=== PATIENT | female | born 1955 | race African-American/Black ===

== ENCOUNTER 2018-08-24 08:07 | Inpatient (IN) | payer MEDICAID ==
[~2018-08-24] VITALS: Ht 165.1 cm; Wt 80.7 kg
[~2018-08-24 08:07] MED LIST: AMIT100T2 PO; ASPI-1159 PO; ATOR20TA65 PO; COR12 PO; CYCL10TA7 PO; DIGO125T82 PO; FURO-151 PO; LISI10TA5 PO; MAGN400C PO; SPIR25TA6 PO
[2018-08-24] MEDS ORDERED: ASPIRIN 81MG TABLET PO ONE (09:15)
[2018-08-24] MEDS ORDERED: ALBUTEROL (0.083%) 2.5MG/3ML NEB HHN STA (09:19)
[2018-08-24] MEDS ORDERED: METHYLPREDNISOLONE SOD SUCC 125 MG/2 ML VIAL IV STA (09:19)
[2018-08-24] MEDS ORDERED: IPRATROPIUM BROMIDE (0.02%) 0.5MG/2.5ML NEB HHN STA (09:19)
[2018-08-24 09:59] LABS: BASOPHILS % 0.5 % (0.0-2.0); EOSINOPHILS % 0.1 % (0.0-5.0); HEMATOCRIT. 34.4 % (36.0-48.0); HEMOGLOBIN. 11.8 g/dL (12.0-16.0); MEAN CORPUSCULAR HEMOGLOBIN 36.6 pg (28.0-32.0); MEAN PLATELET VOLUME 10.1 fl (7.4-10.4); MONOCYTES % 12.1 % (2.0-8.0); NEUTROPHILS % 57.3 % (40.0-76.0); PLATELET 107 x1000/uL (130-400); RED BLOOD CELL COUNT 3.22 mill/uL (4.2-5.4); RED CELL DISTRIBUTION WIDTH 14.4 % (11.6-14.6)
[2018-08-24 10:05] LABS: CHLORIDE 104 mEq/L (98-107)
[2018-08-24 10:08] LABS: INR 1.2; PROTHROMBIN TIME 11.7 sec (9.1-11.1)
[2018-08-24 10:52] LABS: DIGOXIN < 0.1 ng/mL (0.9-2.0)
[2018-08-24] MEDS ORDERED: FUROSEMIDE 40MG/4ML VIAL IVP ONE (11:00)
[2018-08-24] MEDS ORDERED: DOCUSATE SODIUM 100MG CAPSULE PO PRN (11:45)
[2018-08-24] MEDS ORDERED: ACETAMINOPHEN 325MG TABLET PO PRN (11:45)
[2018-08-24] MEDS ORDERED: IPRATROPIUM/ALBUTEROL 0.5-3(2.5)MG/3ML NEB INH PRN (11:45)
[2018-08-24] MEDS ORDERED: GUAIFENESIN 200MG/10ML SUGAR FREE UDC PO PRN (11:45)
[2018-08-24] MEDS ORDERED: LORAZEPAM 2MG/ML CPJ IV PRN (11:45)
[2018-08-24] MEDS ORDERED: NA PHOS,M-B/NA PHOS,DI-BA ENEMA 118ML PR PRN (11:45)
[2018-08-24] MEDS ORDERED: CLONIDINE 0.1MG TABLET PO PRN (11:45)
[2018-08-24] MEDS ORDERED: MAGNESIUM/ALUMINUM HYDROXIDE/SIMETHICONE 30ML UDC PO PRN (11:45)
[2018-08-24] MEDS ORDERED: METHYLPREDNISOLONE SOD SUCC 125 MG/2 ML VIAL IV SCH (11:45)
[2018-08-24] MEDS: NITROGLYCERIN 0.4MG TABLET SL SL PRN (11:47)
[2018-08-24] MEDS: HYDROCODONE/ACETAMINOPHEN 5/325MG TABLET PO PRN (13:21)
[2018-08-24] MEDS: HYDROMORPHONE HCL/PF 2MG/ML CPJ IV PRN ×2 (13:21→21:29)
[2018-08-24 16:47] VITALS: BP 114/89
[2018-08-24] MEDS: ONDANSETRON HCL 4MG/2ML INJ IV PRN ×2 (17:14→23:31)
[2018-08-24] MEDS: ENOXAPARIN 40MG/0.4ML SYR SUBCUT SCH (17:14)
[2018-08-24] MEDS: NICOTINE 14MG PATCH TD SCH (17:14)
[2018-08-24] MEDS: IPRATROPIUM/ALBUTEROL 0.5-3(2.5)MG/3ML NEB HHN PRN ×2 (17:18→20:30)
[2018-08-24 20:02] VITALS: BP 112/85
[2018-08-24 20:19] LABS: CHLORIDE 103 mEq/L (98-107)
[2018-08-24] MEDS: METHYLPREDNISOLONE SOD SUCC 40 MG/ML VIAL IV SCH (20:46)
[2018-08-25] VITALS (9 sets, daily range): BP systolic 99–114; BP diastolic 60–91
[2018-08-25] MEDS: DIPHENHYDRAMINE 50MG/ML VIAL IV PRN ×3 (00:17→22:48)
[2018-08-25] MEDS: IPRATROPIUM/ALBUTEROL 0.5-3(2.5)MG/3ML NEB HHN PRN ×4 (00:35→22:55)
[2018-08-25 04:27] LABS: CHLORIDE 101 mEq/L (98-107)
[2018-08-25 04:33] LABS: HEMATOCRIT. 32.9 % (36.0-48.0); HEMOGLOBIN. 11.3 g/dL (12.0-16.0); MEAN CORPUSCULAR HEMOGLOBIN 36.8 pg (28.0-32.0); MEAN CORPUSCULAR VOLUME 107.6 fL (81.0-99.0); RED BLOOD CELL COUNT 3.06 mill/uL (4.2-5.4); RED CELL DISTRIBUTION WIDTH 14.5 % (11.6-14.6)
[2018-08-25 04:37] LABS: HDL CHOLESTEROL 124 mg/dL (40-59)
[2018-08-25] MEDS: NITROGLYCERIN 0.4MG TABLET SL SL PRN (04:38)
[2018-08-25 04:41] LABS: LDL CHOLESTEROL 47 mg/dL (5-100)
[2018-08-25 05:30] LABS: CLARITY URINE CLEAR (CLEAR); KETONES URINE TRACE (NEGATIVE); LEUKOCYTE ESTERASE URINE TRACE (NEGATIVE); NITRITE URINE NEGATIVE (NEGATIVE); OCCULT BLOOD URINE NEGATIVE (NEGATIVE); PH URINE 5.5 (4.5-8.0); PROTEIN URINE NEGATIVE (NEGATIVE); SPECIFIC GRAVITY URINE 1.018 (1.005-1.030)
[2018-08-25 05:44] LABS: COLOR URINE DARK YELLOW (YELLOW)
[2018-08-25 05:59] LABS: *AMPHETAMINES SCREEN URINE NEGATIVE (NEGATIVE); *BARBITURATES SCREEN URINE NEGATIVE (NEGATIVE); *BENZODIAZEPINES SCREEN URINE NEGATIVE (NEGATIVE); *COCAINE SCREEN URINE NEGATIVE (NEGATIVE)
[2018-08-25 06:00] LABS: CANNABINOID URINE SCREEN PRESUMTIVE POSITIVE (NEGATIVE); METHADONE URINE SCREEN NEGATIVE (NEGATIVE); OPIATES URINE SCREEN PRESUMTIVE POSITIVE (NEGATIVE); PHENCYCLIDINE URINE SCREEN NEGATIVE (NEGATIVE)
[2018-08-25] MEDS: FUROSEMIDE 40MG/4ML VIAL IV SCH (08:44)
[2018-08-25] MEDS: ASPIRIN 81MG EC TABLET PO SCH (08:44)
[2018-08-25] MEDS: FOLIC ACID 1MG TABLET PO SCH (08:44)
[2018-08-25] MEDS: THIAMINE HCL 100MG TABLET PO SCH (08:44)
[2018-08-25] MEDS: METHYLPREDNISOLONE SOD SUCC 40 MG/ML VIAL IV SCH ×2 (08:44→21:07)
[2018-08-25] MEDS: MULTIVITAMINS,THER W-MINERALS TABLET PO SCH (08:44)
[2018-08-25] MEDS: NICOTINE 14MG PATCH TD SCH (08:44)
[2018-08-25] MEDS ORDERED: SIMV20TA6 PO (09:34)
[2018-08-25] MEDS ORDERED: LOSA25TA12 PO (09:37)
[2018-08-25] MEDS ORDERED: TRAZ-212 PO (09:37)
[2018-08-25] MEDS ORDERED: METH-612 PO (09:37)
[2018-08-25] MEDS ORDERED: METHOCARBAMOL 750MG TABLET PO PRN (10:00)
[2018-08-25] MEDS: SPIRONOLACTONE 50MG TABLET PO SCH (10:20)
[2018-08-25] MEDS: CARVEDILOL 12.5MG TABLET PO SCH ×2 (10:21→21:08)
[2018-08-25] MEDS: ENOXAPARIN 40MG/0.4ML SYR SUBCUT SCH (10:21)
[2018-08-25] MEDS: LOSARTAN POTASSIUM 25 MG TABLET PO SCH (10:29)
[2018-08-25 12:49] LABS: NUCLEATED RED BLOOD CELLS 1 /100 WBC
[2018-08-25 12:51] LABS: MEAN PLATELET VOLUME 10.7 fl (7.4-10.4); PLATELET 108 x1000/uL (130-400); PLATELET ESTIMATE SLIGHTLY DECREASED
[2018-08-25] MEDS ORDERED: METHOCARBAMOL 750MG TABLET PO SCH (14:00)
[2018-08-25] MEDS ORDERED: MEDICATION NOT ON FORMULARY EA (Simvastatin 20 MG) PO SCH (21:00)
[2018-08-25] MEDS: ATORVASTATIN CALCIUM 10MG TABLET PO SCH (21:08)
[2018-08-25] MEDS: TRAZODONE HCL 50MG TABLET PO SCH (21:08)
[2018-08-25] MEDS: HYDROMORPHONE HCL/PF 2MG/ML CPJ IV PRN (21:10)
[2018-08-26] VITALS: BP 105/74
[2018-08-26] MEDS: DIPHENHYDRAMINE 50MG/ML VIAL IV PRN (03:11)
[2018-08-26 06:07] VITALS: BP 111/66
[2018-08-26] MEDS: IPRATROPIUM/ALBUTEROL 0.5-3(2.5)MG/3ML NEB HHN PRN (07:53)
[2018-08-26] MEDS: LOSARTAN POTASSIUM 25 MG TABLET PO SCH (09:00)
[2018-08-26] MEDS: CARVEDILOL 12.5MG TABLET PO SCH ×2 (09:00→20:38)
[2018-08-26] MEDS: FUROSEMIDE 40MG/4ML VIAL IV SCH (09:04)
[2018-08-26] MEDS: FOLIC ACID 1MG TABLET PO SCH (09:05)
[2018-08-26] MEDS: ASPIRIN 81MG EC TABLET PO SCH (09:05)
[2018-08-26] MEDS: METHYLPREDNISOLONE SOD SUCC 40 MG/ML VIAL IV SCH ×2 (09:05→21:06)
[2018-08-26] MEDS: SPIRONOLACTONE 50MG TABLET PO SCH (09:05)
[2018-08-26] MEDS: MULTIVITAMINS,THER W-MINERALS TABLET PO SCH (09:06)
[2018-08-26] MEDS: NICOTINE 14MG PATCH TD SCH (09:06)
[2018-08-26] MEDS: THIAMINE HCL 100MG TABLET PO SCH (09:06)
[2018-08-26] MEDS: HYDROCODONE/ACETAMINOPHEN 5/325MG TABLET PO PRN ×3 (09:07→20:37)
[2018-08-26 09:21] VITALS: BP 95/67
[2018-08-26] MEDS ORDERED: POTASSIUM CHLORIDE 20MEQ TABLET SR PO SCH (11:45)
[2018-08-26] MEDS: ENOXAPARIN 40MG/0.4ML SYR SUBCUT SCH (14:19)
[2018-08-26] MEDS: IPRATROPIUM/ALBUTEROL 0.5-3(2.5)MG/3ML NEB HHN SCH ×2 (15:50→21:48)
[2018-08-26 16:32] LABS: HEPATITIS B SURFACE ANTIGEN NEGATIVE
[2018-08-26 16:56] VITALS: BP 109/76
[2018-08-26 17:02] LABS: HEPATITIS A AB IGM NEGATIVE (NEGATIVE)
[2018-08-26 20:00] VITALS: BP 100/71
[2018-08-26] MEDS: GUAIFENESIN 600MG ER TABLET PO SCH (20:30)
[2018-08-26] MEDS: ATORVASTATIN CALCIUM 10MG TABLET PO SCH (20:30)
[2018-08-26] MEDS: TRAZODONE HCL 50MG TABLET PO SCH (20:30)
[2018-08-27] VITALS: BP 102/76
[2018-08-27] MEDS: IPRATROPIUM/ALBUTEROL 0.5-3(2.5)MG/3ML NEB HHN SCH ×4 (03:46→20:24)
[2018-08-27 04:00] VITALS: BP 103/78
[2018-08-27] MEDS: ASPIRIN 81MG EC TABLET PO SCH (07:42)
[2018-08-27] MEDS: METHYLPREDNISOLONE SOD SUCC 40 MG/ML VIAL IV SCH ×2 (07:42→21:19)
[2018-08-27] MEDS: GUAIFENESIN 600MG ER TABLET PO SCH ×2 (07:42→20:54)
[2018-08-27] MEDS: FOLIC ACID 1MG TABLET PO SCH (07:42)
[2018-08-27] MEDS: MULTIVITAMINS,THER W-MINERALS TABLET PO SCH (07:42)
[2018-08-27] MEDS: THIAMINE HCL 100MG TABLET PO SCH (07:42)
[2018-08-27] MEDS: HYDROCODONE/ACETAMINOPHEN 5/325MG TABLET PO PRN ×2 (07:43→20:54)
[2018-08-27] MEDS: NICOTINE 14MG PATCH TD SCH (07:44)
[2018-08-27] MEDS: SPIRONOLACTONE 50MG TABLET PO SCH (07:45)
[2018-08-27 07:50] VITALS: BP 111/83
[2018-08-27 08:14] LABS: BASOPHILS % 0.2 % (0.0-2.0); EOSINOPHILS % 0.1 % (0.0-5.0); HEMATOCRIT. 34.7 % (36.0-48.0); HEMOGLOBIN. 11.9 g/dL (12.0-16.0); LYMPHOCYTES % 20.8 % (20.0-50.0); MEAN CORPUSCULAR HEMOGLOBIN 37.1 pg (28.0-32.0); MEAN CORPUSCULAR VOLUME 107.8 fL (81.0-99.0); MONOCYTES % 10.7 % (2.0-8.0); NEUTROPHILS % 68.2 % (40.0-76.0); RED BLOOD CELL COUNT 3.21 mill/uL (4.2-5.4)
[2018-08-27] MEDS: LOSARTAN POTASSIUM 25 MG TABLET PO SCH (08:38)
[2018-08-27] MEDS: CARVEDILOL 12.5MG TABLET PO SCH ×2 (08:38→20:54)
[2018-08-27 10:21] LABS: PLATELET 111 x1000/uL (130-400)
[2018-08-27 12:00] VITALS: BP 104/75
[2018-08-27 13:38] LABS: CHLORIDE 100 mEq/L (98-107)
[2018-08-27] MEDS: ENOXAPARIN 40MG/0.4ML SYR SUBCUT SCH (14:55)
[2018-08-27] MEDS: FUROSEMIDE 40MG/4ML VIAL IV SCH (14:55)
[2018-08-27] MEDS: DIPHENHYDRAMINE 50MG/ML VIAL IV PRN (15:05)
[2018-08-27 16:00] VITALS: BP 103/79
[2018-08-27] MEDS ORDERED: WARFARIN SODIUM 2.5MG TABLET PO SCH (18:00)
[2018-08-27 20:45] VITALS: BP 102/75
[2018-08-27] MEDS: ATORVASTATIN CALCIUM 10MG TABLET PO SCH (20:54)
[2018-08-27] MEDS: TRAZODONE HCL 50MG TABLET PO SCH (20:54)
[2018-08-28 00:53] VITALS: BP 99/73
[2018-08-28] MEDS: IPRATROPIUM/ALBUTEROL 0.5-3(2.5)MG/3ML NEB HHN SCH ×4 (01:10→21:09)
[2018-08-28 04:00] VITALS: BP 113/78
[2018-08-28 06:11] LABS: CHLORIDE 100 mEq/L (98-107)
[2018-08-28 06:39] LABS: HEMATOCRIT. 34.1 % (36.0-48.0); HEMOGLOBIN. 11.8 g/dL (12.0-16.0); LYMPHOCYTES % 15.7 % (20.0-50.0); MEAN CORPUSCULAR HEMOGLOBIN 37.2 pg (28.0-32.0); MEAN CORPUSCULAR VOLUME 107.6 fL (81.0-99.0); MONOCYTES % 9.3 % (2.0-8.0); RED BLOOD CELL COUNT 3.17 mill/uL (4.2-5.4); RED CELL DISTRIBUTION WIDTH 14.8 % (11.6-14.6)
[2018-08-28 08:15] LABS: HIV SCREEN 4G Non Reactive (Non Reactive)
[2018-08-28 08:16] VITALS: BP 101/74
[2018-08-28] MEDS: LOSARTAN POTASSIUM 25 MG TABLET PO SCH (09:00)
[2018-08-28] MEDS: CARVEDILOL 12.5MG TABLET PO SCH ×2 (09:00→21:00)
[2018-08-28] MEDS: SPIRONOLACTONE 50MG TABLET PO SCH ×2 (09:00→12:31)
[2018-08-28] MEDS: FOLIC ACID 1MG TABLET PO SCH (09:16)
[2018-08-28] MEDS: MULTIVITAMINS,THER W-MINERALS TABLET PO SCH (09:16)
[2018-08-28] MEDS: FUROSEMIDE 40MG/4ML VIAL IV SCH (09:16)
[2018-08-28] MEDS: METHYLPREDNISOLONE SOD SUCC 40 MG/ML VIAL IV SCH ×2 (09:16→21:40)
[2018-08-28] MEDS: THIAMINE HCL 100MG TABLET PO SCH (09:16)
[2018-08-28] MEDS: ASPIRIN 81MG EC TABLET PO SCH (09:16)
[2018-08-28] MEDS: GUAIFENESIN 600MG ER TABLET PO SCH ×2 (09:16→22:58)
[2018-08-28] MEDS: NICOTINE 14MG PATCH TD SCH (09:17)
[2018-08-28] MEDS: HYDROCODONE/ACETAMINOPHEN 5/325MG TABLET PO PRN (09:57)
[2018-08-28 10:59] LABS: INR 1.1; PROTHROMBIN TIME 10.7 sec (9.1-11.1)
[2018-08-28 11:52] LABS: PLATELET 122 x1000/uL (130-400)
[2018-08-28 12:00] VITALS: BP 90/64
[2018-08-28] MEDS: ENOXAPARIN 40MG/0.4ML SYR SUBCUT SCH (12:31)
[2018-08-28 16:33] VITALS: BP 99/72
[2018-08-28] MEDS: DIPHENHYDRAMINE 50MG/ML VIAL IV PRN (17:05)
[2018-08-28] MEDS ORDERED: WARFARIN SODIUM 5MG TABLET PO NR (18:00)
[2018-08-28] MEDS ORDERED: WARFARIN SODIUM 2MG TABLET PO SCH (18:00)
[2018-08-28 20:00] VITALS: BP 99/74
[2018-08-28] MEDS: TRAZODONE HCL 50MG TABLET PO SCH (22:58)
[2018-08-28] MEDS: ATORVASTATIN CALCIUM 10MG TABLET PO SCH (22:58)
[2018-08-29] VITALS: BP 93/68
[2018-08-29] MEDS: IPRATROPIUM/ALBUTEROL 0.5-3(2.5)MG/3ML NEB HHN SCH ×3 (01:33→14:52)
[2018-08-29 04:00] VITALS: BP 100/70
[2018-08-29 08:00] VITALS: BP 102/55
[2018-08-29] MEDS: CARVEDILOL 12.5MG TABLET PO SCH (08:37)
[2018-08-29] MEDS: LOSARTAN POTASSIUM 25 MG TABLET PO SCH (08:38)
[2018-08-29] MEDS: ASPIRIN 81MG EC TABLET PO SCH (08:49)
[2018-08-29] MEDS: SPIRONOLACTONE 50MG TABLET PO SCH (08:49)
[2018-08-29] MEDS: FOLIC ACID 1MG TABLET PO SCH (08:49)
[2018-08-29] MEDS: MULTIVITAMINS,THER W-MINERALS TABLET PO SCH (08:49)
[2018-08-29] MEDS: THIAMINE HCL 100MG TABLET PO SCH (08:49)
[2018-08-29] MEDS: METHYLPREDNISOLONE SOD SUCC 40 MG/ML VIAL IV SCH (08:50)
[2018-08-29] MEDS: FUROSEMIDE 40MG/4ML VIAL IV SCH (08:50)
[2018-08-29] MEDS: GUAIFENESIN 600MG ER TABLET PO SCH (08:50)
[2018-08-29] MEDS: NICOTINE 14MG PATCH TD SCH (08:50)
[2018-08-29] MEDS: HYDROCODONE/ACETAMINOPHEN 5/325MG TABLET PO PRN (09:36)
[2018-08-29 10:48] LABS: INR 1.1; PROTHROMBIN TIME 10.9 sec (9.1-11.1)
[2018-08-29] MEDS: ENOXAPARIN 40MG/0.4ML SYR SUBCUT SCH (11:52)
[2018-08-29 12:00] VITALS: BP 97/70
[2018-08-29 12:21] VITALS: BP 100/68
[2018-08-29] MEDS ORDERED: WARFARIN SODIUM 5MG TABLET PO SCH (18:00)
== END 2018-08-29 16:00 | disposition home or self-care (01) | DRG 194 ==
LOC: ER 08:07 → 6WST 08:08 → ENRESERV 15:51
PROVIDERS: ADMIT Internal Medicine; ATTEND Internal Medicine
DX: I11.0 Hypertensive heart disease with heart failure (principal); J96.00 Acute respiratory failure, unspecified whether with hypoxia or hypercapnia; D61.818 Other pancytopenia; E44.0 Moderate protein-calorie malnutrition; J44.1 Chronic obstructive pulmonary disease with (acute) exacerbation; I50.23 Acute on chronic systolic (congestive) heart failure; F10.10 Alcohol abuse, uncomplicated; F12.90 Cannabis use, unspecified, uncomplicated; F17.210 Nicotine dependence, cigarettes, uncomplicated; I42.9 Cardiomyopathy, unspecified; I44.7 Left bundle-branch block, unspecified; I45.81 Long QT syndrome; K76.0 Fatty (change of) liver, not elsewhere classified; D63.1 Anemia in chronic kidney disease; Z79.01 Long term (current) use of anticoagulants
CPT/HCPCS: 36415; 71045; 76700; 80048; 80061; 80162; 80305; 83880; 84439; 84443; 84484; 85379; 86705; 86709; 86803; 87340; 87389; 87804; 93005; 93306; 93970; 94640; 96374; 96375; 99285; C1893; J1170; J1200; J1650; J1940; J2405; J2920; J2930; J7620

== ENCOUNTER 2018-09-07 05:47 | Inpatient (IN) | payer MEDICAID ==
[~2018-09-07] VITALS: Ht 175.3 cm; Wt 65.4 kg
[~2018-09-07 05:47] MED LIST changes: +LOSA25TA12 PO; +METH-612 PO; +SIMV20TA6 PO; +TRAZ-212 PO
[2018-09-07] MEDS ORDERED: ALBUTEROL (0.083%) 2.5MG/3ML NEB HHN STA ×2 (06:29→08:30)
[2018-09-07] MEDS ORDERED: IPRATROPIUM BROMIDE (0.02%) 0.5MG/2.5ML NEB HHN STA ×2 (06:29→08:30)
[2018-09-07] MEDS ORDERED: METHYLPREDNISOLONE SOD SUCC 125 MG/2 ML VIAL IV STA (07:05)
[2018-09-07] MEDS ORDERED: ASPIRIN 325MG TABLET PO ONE (08:30)
[2018-09-07] MEDS ORDERED: MORPHINE SULFATE 4 MG/ML CPJ (NOT FOR IM USE) IV STA (08:30)
[2018-09-07] MEDS ORDERED: MORPHINE SULFATE 10 MG/ML CPJ IV NR (08:38)
[2018-09-07 09:10] LABS: BASOPHILS % 0.7 % (0.0-2.0); EOSINOPHILS % 0.1 % (0.0-5.0); HEMATOCRIT. 35.7 % (36.0-48.0); HEMOGLOBIN. 12.3 g/dL (12.0-16.0); LYMPHOCYTES % 28.6 % (20.0-50.0); MEAN CORPUSCULAR HEMOGLOBIN 36.5 pg (28.0-32.0); MEAN CORPUSCULAR VOLUME 105.9 fL (81.0-99.0); MEAN PLATELET VOLUME 9.8 fl (7.4-10.4); MONOCYTES % 9.8 % (2.0-8.0); NEUTROPHILS % 60.8 % (40.0-76.0); PLATELET 197 x1000/uL (130-400); RED BLOOD CELL COUNT 3.37 mill/uL (4.2-5.4); RED CELL DISTRIBUTION WIDTH 14.7 % (11.6-14.6)
[2018-09-07 09:11] LABS: CHLORIDE 108 mEq/L (98-107)
[2018-09-07 09:18] LABS: PROTHROMBIN TIME 62.1 sec (9.1-11.1)
[2018-09-07] MEDS ORDERED: SODIUM CHLORIDE 0.9% 1,000 ML IV ONE (09:34)
[2018-09-07] MEDS ORDERED: SODIUM CHLORIDE 0.9% 500 ML IV ONE (09:38)
[2018-09-07 09:58] LABS: INR 6.4
[2018-09-07] MEDS ORDERED: IOHEXOL-350 100 ML BOTTLE ONE ×2 (11:07→12:12)
[2018-09-07] MEDS ORDERED: MAGNESIUM/ALUMINUM HYDROXIDE/SIMETHICONE 30ML UDC PO PRN (12:45)
[2018-09-07] MEDS ORDERED: ONDANSETRON HCL 4MG/2ML INJ IV PRN (12:45)
[2018-09-07] MEDS ORDERED: LORAZEPAM 2MG/ML CPJ IV PRN (12:45)
[2018-09-07] MEDS ORDERED: NA PHOS,M-B/NA PHOS,DI-BA ENEMA 118ML PR PRN (12:45)
[2018-09-07] MEDS ORDERED: ACETAMINOPHEN 325MG TABLET PO PRN (12:45)
[2018-09-07] MEDS ORDERED: CLONIDINE 0.1MG TABLET PO PRN (12:45)
[2018-09-07 13:15] VITALS: BP 103/74
[2018-09-07] MEDS: IPRATROPIUM/ALBUTEROL 0.5-3(2.5)MG/3ML NEB INH PRN ×2 (14:03→19:36)
[2018-09-07] MEDS: LOSARTAN POTASSIUM 50 MG TABLET PO SCH (14:45)
[2018-09-07 16:00] VITALS: BP 99/74
[2018-09-07 16:04] LABS: CHLORIDE 105 mEq/L (98-107)
[2018-09-07] MEDS: HYDROCODONE/ACETAMINOPHEN 10/325MG TABLET PO PRN ×2 (16:18→20:58)
[2018-09-07] MEDS ORDERED: PNV1TABL76 MT (17:09)
[2018-09-07] MEDS ORDERED: FLUT1BLS IH (17:09)
[2018-09-07] MEDS ORDERED: MELA3CAP MT (17:09)
[2018-09-07] MEDS ORDERED: WARF-53 MT (17:09)
[2018-09-07 17:11] VITALS: BP 103/74
[2018-09-07] MEDS: FUROSEMIDE 40MG/4ML VIAL IVP SCH (17:15)
[2018-09-07 20:00] VITALS: BP 100/79
[2018-09-07] MEDS: CARVEDILOL 6.25 MG TABLET PO SCH (20:58)
[2018-09-08] VITALS: BP 92/65
[2018-09-08] MEDS: HYDROCODONE/ACETAMINOPHEN 10/325MG TABLET PO PRN ×3 (02:57→17:09)
[2018-09-08] MEDS: DIPHENHYDRAMINE 50MG/ML VIAL IV PRN ×3 (03:04→23:08)
[2018-09-08] MEDS: IPRATROPIUM/ALBUTEROL 0.5-3(2.5)MG/3ML NEB INH PRN ×5 (03:10→22:25)
[2018-09-08 04:00] VITALS: BP 94/65
[2018-09-08 06:21] LABS: BASOPHILS % 0.2 % (0.0-2.0); HEMATOCRIT. 33.6 % (36.0-48.0); HEMOGLOBIN. 11.4 g/dL (12.0-16.0); MEAN CORPUSCULAR HEMOGLOBIN 36.2 pg (28.0-32.0); MEAN CORPUSCULAR VOLUME 106.3 fL (81.0-99.0); MEAN PLATELET VOLUME 9.9 fl (7.4-10.4); MONOCYTES % 10.9 % (2.0-8.0); NEUTROPHILS % 74.9 % (40.0-76.0); PLATELET 195 x1000/uL (130-400); RED BLOOD CELL COUNT 3.16 mill/uL (4.2-5.4); RED CELL DISTRIBUTION WIDTH 14.4 % (11.6-14.6)
[2018-09-08] MEDS: FUROSEMIDE 40MG/4ML VIAL IVP SCH ×2 (06:29→17:09)
[2018-09-08 06:43] LABS: CHLORIDE 104 mEq/L (98-107)
[2018-09-08 06:54] LABS: LDL CHOLESTEROL 54 mg/dL (5-100)
[2018-09-08 06:55] LABS: HDL CHOLESTEROL 107 mg/dL (40-59); T4 FREE 1.04 ng/dL (0.76-1.46)
[2018-09-08 08:00] VITALS: BP 100/78
[2018-09-08] MEDS: CARVEDILOL 6.25 MG TABLET PO SCH ×2 (08:30→21:00)
[2018-09-08] MEDS: LOSARTAN POTASSIUM 50 MG TABLET PO SCH (08:30)
[2018-09-08] MEDS: SPIRONOLACTONE 25MG TABLET PO SCH (08:36)
[2018-09-08 12:00] VITALS: BP 100/74
[2018-09-08 16:00] VITALS: BP 101/80
[2018-09-08 20:00] VITALS: BP 110/75
[2018-09-09] VITALS: BP 110/65
[2018-09-09] MEDS: IPRATROPIUM/ALBUTEROL 0.5-3(2.5)MG/3ML NEB INH PRN ×2 (00:42→04:53)
[2018-09-09 04:00] VITALS: BP 124/59
[2018-09-09] MEDS: DIPHENHYDRAMINE 50MG/ML VIAL IV PRN ×3 (04:23→21:01)
[2018-09-09 06:41] LABS: INR 2.9; PROTHROMBIN TIME 28.4 sec (9.1-11.1)
[2018-09-09] MEDS: FUROSEMIDE 40MG/4ML VIAL IVP SCH ×2 (06:49→16:26)
[2018-09-09 06:50] LABS: BASOPHILS % 0.5 % (0.0-2.0); EOSINOPHILS % 0.3 % (0.0-5.0); HEMATOCRIT. 33.4 % (36.0-48.0); HEMOGLOBIN. 11.3 g/dL (12.0-16.0); LYMPHOCYTES % 30.3 % (20.0-50.0); MEAN CORPUSCULAR HEMOGLOBIN 36.2 pg (28.0-32.0); MEAN CORPUSCULAR VOLUME 107.4 fL (81.0-99.0); MEAN PLATELET VOLUME 9.5 fl (7.4-10.4); MONOCYTES % 6.5 % (2.0-8.0); NEUTROPHILS % 62.4 % (40.0-76.0); PLATELET 162 x1000/uL (130-400); RED BLOOD CELL COUNT 3.11 mill/uL (4.2-5.4); RED CELL DISTRIBUTION WIDTH 14.6 % (11.6-14.6)
[2018-09-09 08:00] VITALS: BP 100/73
[2018-09-09 08:11] LABS: CHLORIDE 105 mEq/L (98-107)
[2018-09-09] MEDS: LOSARTAN POTASSIUM 50 MG TABLET PO SCH (09:00)
[2018-09-09] MEDS: CARVEDILOL 6.25 MG TABLET PO SCH ×2 (09:00→21:00)
[2018-09-09] MEDS: SPIRONOLACTONE 25MG TABLET PO SCH (09:40)
[2018-09-09 12:00] VITALS: BP 93/64
[2018-09-09 16:00] VITALS: BP 97/78
[2018-09-09] MEDS: GUAIFENESIN 200MG/10ML SUGAR FREE UDC PO PRN ×2 (16:26→21:01)
[2018-09-09] MEDS: HYDROCODONE/ACETAMINOPHEN 10/325MG TABLET PO PRN (18:40)
[2018-09-09 19:52] LABS: *AMPHETAMINES SCREEN URINE NEGATIVE (NEGATIVE); *BARBITURATES SCREEN URINE NEGATIVE (NEGATIVE)
[2018-09-09 19:53] LABS: *BENZODIAZEPINES SCREEN URINE NEGATIVE (NEGATIVE); *COCAINE SCREEN URINE NEGATIVE (NEGATIVE); CANNABINOID URINE SCREEN NEGATIVE (NEGATIVE); METHADONE URINE SCREEN NEGATIVE (NEGATIVE); OPIATES URINE SCREEN PRESUMTIVE POSITIVE (NEGATIVE); PHENCYCLIDINE URINE SCREEN NEGATIVE (NEGATIVE)
[2018-09-09 20:00] VITALS: BP 96/67
[2018-09-09] MEDS: IPRATROPIUM/ALBUTEROL 0.5-3(2.5)MG/3ML NEB HHN SCH (20:11)
[2018-09-09] MEDS: BUDESONIDE 0.5MG/2ML NEB HHN SCH (20:11)
[2018-09-09] MEDS: GUAIFENESIN 600MG ER TABLET PO SCH (21:01)
[2018-09-10] VITALS: BP 106/79
[2018-09-10] MEDS: DIPHENHYDRAMINE 50MG/ML VIAL IV PRN ×3 (01:24→15:32)
[2018-09-10] MEDS: IPRATROPIUM/ALBUTEROL 0.5-3(2.5)MG/3ML NEB HHN SCH ×5 (01:48→23:17)
[2018-09-10] MEDS: HYDROCODONE/ACETAMINOPHEN 10/325MG TABLET PO PRN ×3 (03:37→22:44)
[2018-09-10 04:00] VITALS: BP 97/74
[2018-09-10 05:38] LABS: BASOPHILS % 0.5 % (0.0-2.0); EOSINOPHILS % 0.5 % (0.0-5.0); HEMOGLOBIN. 11.2 g/dL (12.0-16.0); LYMPHOCYTES % 30.4 % (20.0-50.0); MEAN CORPUSCULAR HEMOGLOBIN 36.5 pg (28.0-32.0); MEAN CORPUSCULAR VOLUME 107.1 fL (81.0-99.0); MEAN PLATELET VOLUME 10.1 fl (7.4-10.4); MONOCYTES % 7.4 % (2.0-8.0); NEUTROPHILS % 61.2 % (40.0-76.0); PLATELET 164 x1000/uL (130-400); RED BLOOD CELL COUNT 3.08 mill/uL (4.2-5.4); RED CELL DISTRIBUTION WIDTH 14.3 % (11.6-14.6)
[2018-09-10 05:40] LABS: INR 1.5; PROTHROMBIN TIME 15.4 sec (9.1-11.1)
[2018-09-10 06:06] LABS: CHLORIDE 103 mEq/L (98-107)
[2018-09-10] MEDS: FUROSEMIDE 40MG/4ML VIAL IVP SCH (06:27)
[2018-09-10] MEDS: BUDESONIDE 0.5MG/2ML NEB HHN SCH ×2 (07:39→20:51)
[2018-09-10 08:00] VITALS: BP 96/73
[2018-09-10] MEDS: LOSARTAN POTASSIUM 50 MG TABLET PO SCH ×2 (09:00→10:07)
[2018-09-10] MEDS: CARVEDILOL 3.125 MG TABLET PO SCH ×2 (09:30→20:38)
[2018-09-10] MEDS ORDERED: POTASSIUM CHLORIDE 20MEQ TABLET SR PO NR (09:30)
[2018-09-10] MEDS: SPIRONOLACTONE 25MG TABLET PO SCH (10:07)
[2018-09-10] MEDS: DOCUSATE SODIUM 100MG CAPSULE PO PRN (10:07)
[2018-09-10] MEDS: GUAIFENESIN 600MG ER TABLET PO SCH ×2 (10:09→20:38)
[2018-09-10 12:00] VITALS: BP 100/73
[2018-09-10] MEDS ORDERED: WARFARIN SODIUM 2.5MG TABLET PO SCH ×2 (14:00→18:00)
[2018-09-10] MEDS ORDERED: MAGNESIUM 1 G PREMIX 100 ML IV NR (15:00)
[2018-09-10] MEDS: ENOXAPARIN 80MG/0.8ML SYR SUBCUT SCH (15:07)
[2018-09-10 16:00] VITALS: BP 91/71
[2018-09-10 20:00] VITALS: BP 102/74
[2018-09-10] MEDS: IPRATROPIUM/ALBUTEROL 0.5-3(2.5)MG/3ML NEB INH PRN (23:17)
[2018-09-11] VITALS: BP 99/76
[2018-09-11] MEDS: DIPHENHYDRAMINE 50MG/ML VIAL IV PRN ×3 (00:19→23:38)
[2018-09-11] MEDS: ENOXAPARIN 80MG/0.8ML SYR SUBCUT SCH ×2 (03:20→15:42)
[2018-09-11 04:00] VITALS: BP 102/76
[2018-09-11] MEDS: IPRATROPIUM/ALBUTEROL 0.5-3(2.5)MG/3ML NEB HHN SCH ×3 (04:47→19:58)
[2018-09-11 07:40] LABS: BASOPHILS % 0.7 % (0.0-2.0); EOSINOPHILS % 0.8 % (0.0-5.0); HEMOGLOBIN. 10.9 g/dL (12.0-16.0); INR 1.4; LYMPHOCYTES % 25.2 % (20.0-50.0); MEAN CORPUSCULAR HEMOGLOBIN 36.7 pg (28.0-32.0); MEAN CORPUSCULAR VOLUME 107.2 fL (81.0-99.0); MEAN PLATELET VOLUME 10.6 fl (7.4-10.4); MONOCYTES % 8.7 % (2.0-8.0); NEUTROPHILS % 64.6 % (40.0-76.0); PLATELET 143 x1000/uL (130-400); PROTHROMBIN TIME 13.8 sec (9.1-11.1); RED BLOOD CELL COUNT 2.98 mill/uL (4.2-5.4); RED CELL DISTRIBUTION WIDTH 15.1 % (11.6-14.6)
[2018-09-11 08:00] VITALS: BP 102/73
[2018-09-11] MEDS: LOSARTAN POTASSIUM 25 MG TABLET PO SCH (09:00)
[2018-09-11] MEDS: BUDESONIDE 0.5MG/2ML NEB HHN SCH ×2 (09:01→19:59)
[2018-09-11 09:04] LABS: CHLORIDE 102 mEq/L (98-107)
[2018-09-11] MEDS: CARVEDILOL 3.125 MG TABLET PO SCH ×2 (09:08→20:39)
[2018-09-11] MEDS: GUAIFENESIN 600MG ER TABLET PO SCH ×2 (09:08→20:39)
[2018-09-11] MEDS: SPIRONOLACTONE 25MG TABLET PO SCH (09:09)
[2018-09-11] MEDS: MORPHINE SULFATE 4 MG/ML CPJ (NOT FOR IM USE) IV PRN ×2 (11:05→21:38)
[2018-09-11 12:00] VITALS: BP 93/74
[2018-09-11 16:00] VITALS: BP 94/75
[2018-09-11] MEDS ORDERED: WARFARIN SODIUM 7.5MG TABLET PO ONE (18:00)
[2018-09-11 20:47] VITALS: BP 100/73
[2018-09-12 00:02] VITALS: BP 91/69
[2018-09-12] MEDS: IPRATROPIUM/ALBUTEROL 0.5-3(2.5)MG/3ML NEB HHN SCH ×4 (00:45→20:19)
[2018-09-12] MEDS: ENOXAPARIN 80MG/0.8ML SYR SUBCUT SCH ×2 (03:07→16:42)
[2018-09-12] MEDS: GUAIFENESIN 200MG/10ML SUGAR FREE UDC PO PRN (03:07)
[2018-09-12 04:00] VITALS: BP 96/67
[2018-09-12 07:19] LABS: BASOPHILS % 0.8 % (0.0-2.0); EOSINOPHILS % 0.5 % (0.0-5.0); HEMATOCRIT. 33.9 % (36.0-48.0); HEMOGLOBIN. 11.5 g/dL (12.0-16.0); LYMPHOCYTES % 24.6 % (20.0-50.0); MEAN CORPUSCULAR HEMOGLOBIN 36.2 pg (28.0-32.0); MEAN PLATELET VOLUME 10.7 fl (7.4-10.4); MONOCYTES % 11.7 % (2.0-8.0); NEUTROPHILS % 62.4 % (40.0-76.0); PLATELET 142 x1000/uL (130-400); RED BLOOD CELL COUNT 3.17 mill/uL (4.2-5.4); RED CELL DISTRIBUTION WIDTH 15.3 % (11.6-14.6)
[2018-09-12 07:21] LABS: INR 1.4; PROTHROMBIN TIME 14.2 sec (9.1-11.1)
[2018-09-12 07:40] LABS: CHLORIDE 102 mEq/L (98-107)
[2018-09-12 08:00] VITALS: BP 108/70
[2018-09-12] MEDS: LOSARTAN POTASSIUM 25 MG TABLET PO SCH (09:00)
[2018-09-12] MEDS: DOCUSATE SODIUM 100MG CAPSULE PO PRN (09:10)
[2018-09-12] MEDS: GUAIFENESIN 600MG ER TABLET PO SCH ×2 (09:10→20:42)
[2018-09-12] MEDS: CARVEDILOL 3.125 MG TABLET PO SCH ×2 (09:11→21:00)
[2018-09-12] MEDS: SPIRONOLACTONE 25MG TABLET PO SCH (09:11)
[2018-09-12] MEDS: BUDESONIDE 0.5MG/2ML NEB HHN SCH (09:16)
[2018-09-12 12:00] VITALS: BP 95/74
[2018-09-12 16:00] VITALS: BP 98/73
[2018-09-12] MEDS ORDERED: LORAZEPAM 2MG/ML CPJ IV PRN (16:00)
[2018-09-12] MEDS ORDERED: HYDROCODONE/ACETAMINOPHEN 10/325MG TABLET PO PRN (16:00)
[2018-09-12] MEDS: MORPHINE SULFATE 10MG/5ML ORAL SOLN UDC PO PRN (16:31)
[2018-09-12] MEDS ORDERED: WARFARIN SODIUM 7.5MG TABLET PO NR (18:00)
[2018-09-12 20:00] VITALS: BP 96/74
[2018-09-12] MEDS: DIPHENHYDRAMINE 50MG/ML VIAL IV PRN (20:42)
[2018-09-13] VITALS: BP 102/74
[2018-09-13] MEDS: IPRATROPIUM/ALBUTEROL 0.5-3(2.5)MG/3ML NEB HHN SCH ×2 (00:53→05:03)
[2018-09-13] MEDS: ENOXAPARIN 80MG/0.8ML SYR SUBCUT SCH (02:46)
[2018-09-13] MEDS: DIPHENHYDRAMINE 50MG/ML VIAL IV PRN (03:41)
[2018-09-13 04:00] VITALS: BP 109/80
[2018-09-13 07:41] LABS: BASOPHILS % 0.7 % (0.0-2.0); EOSINOPHILS % 0.4 % (0.0-5.0); HEMATOCRIT. 33.4 % (36.0-48.0); HEMOGLOBIN. 11.4 g/dL (12.0-16.0); LYMPHOCYTES % 30.7 % (20.0-50.0); MEAN CORPUSCULAR HEMOGLOBIN 36.3 pg (28.0-32.0); MEAN CORPUSCULAR VOLUME 106.6 fL (81.0-99.0); MEAN PLATELET VOLUME 10.6 fl (7.4-10.4); MONOCYTES % 13.3 % (2.0-8.0); NEUTROPHILS % 54.9 % (40.0-76.0); PLATELET 148 x1000/uL (130-400); RED BLOOD CELL COUNT 3.14 mill/uL (4.2-5.4)
[2018-09-13 07:43] LABS: INR 2.1; PROTHROMBIN TIME 20.9 sec (9.1-11.1)
[2018-09-13 07:55] LABS: CHLORIDE 105 mEq/L (98-107)
[2018-09-13 08:00] VITALS: BP 113/81
[2018-09-13] MEDS: LOSARTAN POTASSIUM 25 MG TABLET PO SCH (09:36)
[2018-09-13] MEDS: SPIRONOLACTONE 25MG TABLET PO SCH (09:36)
[2018-09-13] MEDS: GUAIFENESIN 600MG ER TABLET PO SCH (09:36)
[2018-09-13] MEDS: MORPHINE SULFATE 10MG/5ML ORAL SOLN UDC PO PRN (09:36)
[2018-09-13] MEDS: CARVEDILOL 3.125 MG TABLET PO SCH (09:36)
[2018-09-13 12:00] VITALS: BP 110/63
[2018-09-13 15:54] VITALS: BP 110/63
== END 2018-09-13 17:00 | disposition home or self-care (01) | DRG 194 ==
LOC: ER 05:47 → EDBEDREQ 07:48 → 5WST 10:05 → EDBEDREQ 10:06 → EDBEDREQTM 10:06 → ENRESERV 12:33
PROVIDERS: ADMIT Internal Medicine; ATTEND Internal Medicine
DX: I11.0 Hypertensive heart disease with heart failure (principal); J96.00 Acute respiratory failure, unspecified whether with hypoxia or hypercapnia; I47.2 Ventricular tachycardia; R65.10 Systemic inflammatory response syndrome (SIRS) of non-infectious origin without acute organ dysfunction; D68.59 Other primary thrombophilia; E44.0 Moderate protein-calorie malnutrition; J44.1 Chronic obstructive pulmonary disease with (acute) exacerbation; I42.9 Cardiomyopathy, unspecified; I50.33 Acute on chronic diastolic (congestive) heart failure; E78.5 Hyperlipidemia, unspecified; I25.10 Atherosclerotic heart disease of native coronary artery without angina pectoris; F17.200 Nicotine dependence, unspecified, uncomplicated; D64.9 Anemia, unspecified; K76.0 Fatty (change of) liver, not elsewhere classified; Z86.711 Personal history of pulmonary embolism; Z95.810 Presence of automatic (implantable) cardiac defibrillator; Z91.19 Patient's noncompliance with other medical treatment and regimen; Z91.14 Patient's other noncompliance with medication regimen; Z68.21 Body mass index [BMI] 21.0-21.9, adult
CPT/HCPCS: 36415; 71045; 71275; 80048; 80061; 80305; 83735; 83880; 84439; 84481; 84484; 93005; 93970; 94640; 96374; 96375; 99285; J1200; J1650; J1940; J2270; J2930; J3475; J7030; J7040; J7611; J7620; J7626; Q9967